=== PATIENT | female | born 1965 | race Caucasian/White ===

== ENCOUNTER 2016-11-23 13:03 | Emergency (ER) | payer OTHER ==
[2016-11-23 13:07] VITALS: TEMP 98.2; BMI 29.2
--- NOTE | 2016-11-23 13:23 | PDOC ---
Attending Attestation - Resident Resident Name: Walter Ferreira - ED Attending Attestation I have performed the following: I have examined & evaluated the patient, The case was reviewed & discussed with the resident, I agree w/resident's findings & plan, Exceptions are as noted
[2016-11-23] MEDS ORDERED: ONDANSETRON *ODT* 4 MG TABLET SL ONE (13:24)
[2016-11-23] MEDS ORDERED: ONDANSETRON *ODT* 4 MG TABLET ONE (13:28)
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
[2016-11-23 16:23] VITALS: BP 144/83; PULSE 53
== END 2016-11-23 16:23 | disposition home or self-care (01) ==
LOC: JER 13:03
DX: T20.06XA Burn of unspecified degree of forehead and cheek, initial encounter (principal); T22.012A Burn of unspecified degree of left forearm, initial encounter; T22.011A Burn of unspecified degree of right forearm, initial encounter; T21.01XA Burn of unspecified degree of chest wall, initial encounter; X10.2XXA Contact with fats and cooking oils, initial encounter; Y93.G3 Activity, cooking and baking; Y92.010 Kitchen of single-family (private) house as the place of occurrence of the external cause; Y99.8 Other external cause status
CPT/HCPCS: 99282-25

== ENCOUNTER 2017-04-09 10:56 | Emergency (ER) | payer OTHER ==
[2017-04-09 11:03] VITALS: BP 140/87; PULSE 70; TEMP 98.4; BMI 29.2
--- NOTE | 2017-04-09 12:06 | PDOC ---
History of Present Illness - General Chief Complaint: Urinary Problem Stated Complaint: PAIN Time Seen by Provider: 04/09/17 11:22 History Source: Patient Exam Limitations: Language Barrier (Using Macanese interpretation phone) - History of Present Illness Travel History: No Initial Comments: 04/09/17 patient is here with complaints of pain, burning, frequency to urine for the past few days. States had extensive abdominal surgery which caused frequent urinary tract infections. Timing/Duration: reports: constant, getting worse Quality: reports: mild Abdominal Pain Onset Location: reports: suprapubic Pain Radiation: reports: no radiation Activities at Onset: reports: none Aggravating Factors: improves with: None Alleviating Factors: improves with: None Past History - Travel Traveled outside of the country in the last 30 days: No Close contact w/someone who was outside of country & ill: No - Past Medical History Allergies/Adverse Reactions: Allergies Allergy/AdvReac Type Severity Reaction Status Date / Time morphine Allergy Verified 04/09/17 11:03 Home Medications: Ambulatory Orders Cephalexin Monohydrate [Keflex -] 500 mg PO Q8H #21 capsule 04/09/17 COPD: No - Suicide/Smoking/Psychosocial Hx Smoking History: Never smoked Hx Alcohol Use: No Drug/Substance Use Hx: No Substance Use Type: None Review of Systems - Review of Systems Able to Perform ROS?: Yes Is the patient limited Lithuanian proficient: Yes Constitutional: Yes: Symptoms Reported, See HPI, Chills, Fever, Loss of Appetite , Malaise HEENTM: Yes: See HPI. No: Symptoms Reported Respiratory: Yes: Symptoms reported, See HPI : Yes: Symptoms Reported, See HPI, Burning, Dysuria, Frequency Musculoskeletal: Yes: See HPI. No: Symptoms Reported, Back Pain, Joint Pain All Other Systems: Reviewed and Negative *Physical Exam - Vital Signs Last Vital Signs Temp Pulse Resp BP Pulse Ox 98.4 F 70 20 140/87 100 04/09/17 10:59 04/09/17 10:59 04/09/17 10:59 04/09/17 10:59 04/09/17 10:59 - Physical Exam General Appearance: Yes: Nourished, Appropriately Dressed, Apparent Distress HEENT: positive: GILBERT, Normal ENT Inspection, TMs Normal, Pharynx Normal Neck: positive: Tender, Supple. negative: Lymphadenopathy (R), Lymphadenopathy (L) Respiratory/Chest: positive: Lungs Clear Gastrointestinal/Abdominal: positive: Tender, Soft, Tenderness. negative: Distended, Guarding, Rebound Musculoskeletal: positive: Normal Inspection. 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 Patient encouraged follow-up with urologist *DC/Admit/Observation/Transfer Diagnosis at time of Disposition: uti - Discharge Dispostion Disposition: HOME Condition at time of disposition: Stable Admit: No - Prescriptions Prescriptions: Cephalexin Monohydrate [Keflex -] 500 mg PO Q8H #21 capsule - Referrals - Patient Instructions - Post Discharge Activity
[2017-04-09 12:14] LABS: URINE APPEARANCE SLCLOUDY; URINE BILIRUBIN NEGATIVE (NEGATIVE); URINE BLOOD 2+ (NEGATIVE); URINE COLOR STRAW; URINE GLUCOSE (UA) NEGATIVE (NEGATIVE); URINE KETONE NEGATIVE (NEGATIVE); URINE NITRITE NEGATIVE (NEGATIVE); URINE PROTEIN NEGATIVE (NEGATIVE); URINE UROBILINOGEN NEGATIVE mg/dL (0.2-1.0)
[2017-04-09 12:19] LABS: URINE LEUK ESTERASE 3+ (NEGATIVE)
[2017-04-09 12:23] LABS: EPI CELLS RARE /HPF (FEW)
[2017-04-09 12:25] LABS: HCG,QUALITATIVE URINE NEGATIVE
== END 2017-04-09 13:07 | disposition home or self-care (01) ==
LOC: JERFT 10:56
DX: N39.0 Urinary tract infection, site not specified (principal)
CPT/HCPCS: 81003; 81015; 84703; 87086; 99281-25

== ENCOUNTER 2020-09-14 02:17 | Emergency (ER) | payer OTHER ==
[2020-09-14 03:00] VITALS: BP 159/88; PULSE 62; TEMP 97.7; BMI 28.5
[2020-09-14] MEDS ORDERED: ACETAMINOPHEN 325 MG TABLET (FP) PO ONE (03:34)
[2020-09-14] MEDS ORDERED: LIDOCAINE 5% TOPICAL PATCH TP ONE (03:34)
[2020-09-14] MEDS ORDERED: ACETAMINOPHEN 325 MG TABLET (FP) ONE (04:10)
[2020-09-14] MEDS ORDERED: LIDOCAINE 5% TOPICAL PATCH ONE (04:11)
[2020-09-14] MEDS ORDERED: LIDOCAINE PATCH REMOVAL MC SCH (22:00)
== END 2020-09-14 05:28 | disposition home or self-care (01) ==
LOC: JER 02:17
DX: M54.5 Low back pain (principal)
CPT/HCPCS: 72100-TC-FY; 99284-25